=== PATIENT | female | born 2005 | race Two or more races ===

== ENCOUNTER 2025-02-05 04:22 | Emergency (ER) | payer OTHER, SELFPAY ==
--- OUTSIDE RECORDS SUMMARY | 2025-02-05 04:23 | XMS_ITS | Clinical Summary ---
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 Gender Identity Not on file Sexual Orientation Not on file Plan of Treatment Health Maintenance Due Date Last Done Comments CERVICAL CANCER SCREENING 2003 HEPATITIS C SCREENING 2003 TDAP/TD VACCINE (1 - Tdap) 09/14/2014 DEPRESSION SCREENING 2015 HIV SCREENING 09/14/2018 HPV VACCINE (1 - 3-dose series) 09/14/2018 COVID-19 VACCINE (3 - 2024-2 6 season) 2024 10/05/2020, 09/07/2020 INFLUENZA VACCINE (#1) 2024 02/07/2021 ZOSTER SERIES VACCINE (1 of 2) 09/14/2053 Adult RSV VACCINE (1 - 1-dos e 75+ series) 09/14/2078 Pneumococcal Vaccine: Childhood and At-Risk Adult <65 yo Series Aged Out No longer eligible b ased on patient's age to complete this topic Insurance [place] Care Teams Director Clinical Information Services Relationship Specialty Start Date End Date No, Pcp [address] [place] [address] PCP - General 04/03/21
--- OUTSIDE RECORDS SUMMARY | 2025-02-05 04:23 | XMS_ITS | Clinical Summary ---
Author Organization [facility] Address [address] [place] [address] Care Team Providers Care Bacteriologist Pharmaceutical Name Role Phone Unavailable Primary Care Provider Unavailabl e Source Comments In the event that this is information that is protected by federal Confidentiality of Substance UseDisorder Patient Records, 42 CFR Part 2 prohibits the unauthorized disclosure of these records.[facility] Social History Tobacco Use Types Packs/Day Years Used Date Smoking Tobacco: Never Assessed Comments Unknown Sex and Gender Information Value Date Recorded Sex Assigned at Not on file Legal Sex Female 8:02 PM CDT Gender Identity Not on file Sexual Orientation Not on file Plan of Treatment Not on file Insurance [place] * Guarantor: Sarah Cain I Account Type Relation to Patient Date of Phone Billing Address [facility] Self 2005 [address] [facility] [address] [place] [address] [place] Member Subscriber Plan / Payer (Ef fective 2014-Present) Name:Sarah Cain I Relation to Subscriber:Self Name:Sarah Cain I Payer ID:Not on file Group ID:Not on file Type:Medicaid Address: [place] [id number] * Guarantor: CARMINA MONREAL Account Type Relation to Patient Date of Phone Billing Address [facility] Mother [address] [place] [address] [place]
--- OUTSIDE RECORDS SUMMARY | 2025-02-05 04:23 | XMS_ITS | Encounter Summary ---
Author Organization [facility] Address [address] [place] [address] Care Team Providers Care Director Of Recruiting Name Role Phone Unavailable Primary Care Provider Unavailabl e Source Comments In the event that this information is protected by federal Confidentiality ofSubstance Use DisorderPatient Records, 42 CFR Part 2 prohibits theunauthorized disclosure of these records.[facility] Encounter Details Date Type Department Care Team (Late st Contact Info) Description 10/21/2015 Orders Only [place] Pathology [address] [place] [address] Gina Mcneal MD [address] [place] [address] Social History Tobacco Use Types Packs/Day Years Used Date Smoking Tobacco: Never Assessed Comments Unknown Sex and Gender Information Value Date Recorded Sex Assigned at Not on file Legal Sex Female 8:02 PM CDT Gender Identity Not on file Sexual Orientation Not on file documented as of this encounter Plan of Treatment Not on file documented as of this encounter Visit Diagnoses Not on filedocumented in this encounter
--- OUTSIDE RECORDS SUMMARY | 2025-02-05 04:24 | XMS_ITS | Clinical Summary ---
Author Organization [facility] Address [address] [place] [address] Care Team Providers Care Translational Specialist Name Role Phone Brooke Fofana TRUCK DRIVER SALESPERSON-HEALTH SERVICES DIRECTOR Primary Care Provider Allergies No known active allergies Medications potassium phosphate-sodium phosphate (PHOSPHA 250 NEUTRAL) [phone] MG tablet tablet Take 1 tablet by mouth 2 (two) times a day. 120 tablet 1 12/29/2020 Active famotidine (PEPCID) 20 MG tablet Take 1 tablet (20 mg total) by mouth 1 (one) time each day if needed for heartburn. 90 tablet 03/28/2022 Active Active Problems Problem Noted Date Diagnosed Date Bradycardia with 31-40 beats per minute 12/25/19 21 Severe malnutrition 12/24/2020 Anorexia nervosa, binge eating/purging type 12/01 Assessment & Plan (12/26/2020 8:23 PM CDT): Pt medically unstable with severe bradycardia Plan to admit for medical stabilization using inpatient protocol Will remain on protocol until resting HR >50 at which point will be discharged with plans to do FBT with is the recommended first line treatment for an individual her age. Unclear why this treatment wasn't initiated months ago, or why pt did not keep earlier appts with [facility] (as instructed in early october as they have therapists that accept her insurance) as hospitilization may have been avoided. Started conversation on the basic principles of FBT - parents are to decide, , prepare, and observe all meals - pt must complete meals or is to have appropriate consequences. Therapy and meds directed at anxiety/depression are often not helpful wile pt is this malnurished. Priority must be placed on nutritional rehab hospitalist team informed of admission and accepted pt Monitor closely for signs of refeeding syndrome Encounter for immunization 09/07/2020 Exposure to severe acute res piratory syndrome coronavirus 2 (SARS-CoV-2) 07/21/2019 Depressive disorder 07/16/2016 Myopia 11/16/2015 Overweight 10/21/2015 Immunizations Immunization Administration Dates Next Due DTP 09/29/2007, 5,03/20/2004,01/16,2003 DTaP 09/29/2007, 5,03/20/2004,01/16,2003 HIB, Unspecified 06/22/2005, 4,01/17/2004,11/04 HPV 9-Valent (Gardasil) 10/21/2015 HPV, Quadrivalent 09/29/2014 Hepatitis A 11/05/2019 Hepatitis A, Unspecified 03/18/2006,09/21/2005 Hepatitis B, Pediatric 12/22/2004,06/19/2004, IPV (Polio) 09/29/2007, 5,03/20/2004,01/16,2003 MMR 09/29/2007,09/18/2004 Meningococcal Quadrivalent (Menveo-ACWY 2mo-55yo) 09/29/2014 Meningococcal Quadrivalent ACWY 11/05/2019 Pneumococcal Conjugate 7-Valent 03/23/20 05,03/20/2004,01/17/2004,11/04 Pneumococcal, Unspecified 03/23/2005,,01/17/2004,11/04 Tdap 09/29/2013 Varicella (Varivax) 09/29/2007,09/18/2004 Family History Medical History Relation Name Comments No Known Problems Brother No Known Problems Father Diabetes Maternal Grandfather Diabetes Maternal Grandmother No Known Problems Mother No Known Problems Sister Relation Name Status Comments Brother Father Maternal Grandfather Maternal Grandmother Mother Sister Social History Tobacco Use Types Packs/Day Years Used Date Smoking Tobacco: Never Comments:Does not smoke Alcohol Use Standard Drinks/Week Comments Never 0 (1 standard drink = 0.6 oz pur e alcohol) Comments Unknown Sex and Gender Information Value Date Recorded Sex Assigned at Not on file Legal Sex Female 3:26 PM CDT Gender Identity Not on file Sexual Orientation Not on file Last Filed Vital Signs Vital Sign Reading Time Taken Comments Blood Pressure 93/52 03/28/2022 6:13 AM VIOLIN RESTORER Pulse 59 03/28/2022 6:13 AM VIOLIN RESTORER Temperature 36 C (96.8 F) 03/28/2022 2:12 AM VIOLIN RESTORER Respiratory Rate 18 03/28/2022 6:13 AM VIOLIN RESTORER Oxygen Saturation 100% 03/28/2022 6:13 AM VIOLIN RESTORER Inhaled Oxygen Concentration - - Weight 45.4 kg (100 lb) 03/28/2022 2:12 AM VIOLIN RESTORER Height 154.9 cm (5' 1) 03/28/2022 2:12 AM VIOLIN RESTORER Body Mass Index 18.89 03/28/2022 2:12 AM VIOLIN RESTORER Plan of Treatment Health Maintenance Due Date Last Done Comments Hepatitis C Screening 2003 Chlamydia Screening 2019 Meningococcal B Vaccine (1 of 2 - Standard) 2019 DTaP,Tdap,and Td Vaccines (7 - Td or Tdap) 09/30/2023 09/29/2013, 09/29/2007, 09/29/2007, Additional history exists Cervical Cancer Screening 09/14/2024 COVID-19 Vaccine ( season) 2024 03/22/2022, 11/28/2021, 10/05/2020, Additional history exists Influenza Vaccine (#1) 2024 02/07/2021 Zoster Vaccines (1 of 2) 09/14/2053 09/29/2007, 08/31 RSV Vaccine 60+ and Patients (1 - 1-dose 75+ series) 09/14/2078 Hepatitis B Vaccines Completed 12/22/2004, 06/19/2004, 2003 Pneumococcal Vaccine: Pediatrics (0 to 5 Years) and At-Risk Patients (6 to 49 Years) Aged Out 03/23/2005, 03/23/2005, 03/20/2004, Additional history exists No longer eligible based on patient's age to complete this topic HIB Vaccines Completed 06/22/2005, 03/02, 01/17/2004, Additional history exists IPV Vaccines Completed 09/29/2007, 03/02, 03/20/2004, Additional history exists MMR Vaccines Discontinued 09/29/2007, 09/18/2004 Varicella Vaccines Discontinued 09/29/2007, 09/18/2004 HPV Vaccines Completed 10/21/2015, 09/29/2014 Hepatitis A Vaccines Completed 11/05/2019, 03/18/2006, 09/21/2005, Additional history exists Meningococcal ACWY Vaccine Completed 11/05/2019, HIV Screening Completed 03/28/2022 RSV Pediatric <20 Months Aged Out No longer eligible based on patient's age to complete this topic Procedures Procedure Name Priority Date/Time Associated Diagnosis Comments HIV ANTIBODY/ANTIGEN SCREEN WITH REFLEX STAT 03/28/2022 3:46 AM VIOLIN RESTORER from Last 3 Months or Most Recently Relevant to Health Maintenance Results * HIV Antibody/Antigen Screen with Reflex (03/28/2022 3:46 AM VIOLIN RESTORER) Screening, HIV-1 Antibody Non-Reacti ve Non-React siomara 03/28/2022 7:59 AM VIOLIN RESTORER [facility] Screening, HIV-1 Antigen Non-Reacti ve Non-React siomara 03/28/2022 7:59 AM VIOLIN RESTORER [facility] Screening, HIV-2 Antibody Non-Reacti ve Non-React siomara 03/28/2022 7:59 AM VIOLIN RESTORER [facility] Screening, 5th Generation HIV Antigen-Antibod y Non-Reacti ve Non-React siomara 03/28/2022 7:59 AM VIOLIN RESTORER [facility] Blood Venous blood specimen / Unknown Venipuncture / Unknown 03/28/2022 3:46 AM VIOLIN RESTORER 03/28/2022 3:56 AM VIOLIN RESTORER us Lalita Leung MD LAB BLOOD ORDERABLES Final [facility] [address] [address] ([facility]) [place] [address] from Last 3 Months or Most Recently Relevant to Health Maintenance Insurance [employer] MEDICAID-[place] Advance Directives * Full Code (Latest Code Status on File) Date Activated Date Inactivated Comments 12/29/2020 12:06 AM 12/29/2020 2:52 PM Care Teams Translational Specialist Relationship Specialty Start Date End Date Brooke Fofana APRN-CNP [address] [place] [address] PCP - General Internal Medicine 12/26/20
--- OUTSIDE RECORDS SUMMARY | 2025-02-05 04:24 | XMS_ITS | Encounter Summary ---
Author Organization [facility] Address [address] [place] [address] Care Team Providers Care Medical Detail Representative Name Role Phone Unavailable Primary Care Provider Unavailabl e Source Comments In the event that this information is protected by federal Confidentiality ofSubstance Use DisorderPatient Records, 42 CFR Part 2 prohibits theunauthorized disclosure of these records.[facility] Encounter Details Date Type Department Care Team (Late st Contact Info) Description 09/30/2014 Orders Only [place] Pathology [address] [place] [address] Gina Mcneal MD [address] [place] [address] Social History Tobacco Use Types [...]
--- OUTSIDE RECORDS SUMMARY | 2025-02-05 04:24 | XMS_ITS | Patient Health Record ---
Author Organization [facility] Address [address] [place] [address] Support Name Relationship Address Phone MELISSA MONREAL Emergency Contact Unknown JORGE MONREAL Guarantor Unknown Reason For Referral No Information Immunizations Vaccine Route Administration Date Status Comme nts Varicella Unknown 09/18/2004 Administered Varicella Unknown 09/29/2007 Administered Prevnar 13 Unknown 2003 Administered Prevnar 13 Unknown 01/17/2004 Administered Prevnar 13 Unknown 03/20/2004 Administered Prevnar 13 Unknown 03/23/2005 Administered MMR Unknown 09/18/2004 Administered MMR Unknown 09/29/2007 Administered Menveo Unknown 09/29/2014 Administered Menveo Unknown 11/05/2019 Administered IPV Unknown 2003 Administered IPV Unknown 01/17/2004 Administered IPV Unknown 03/20/2004 Administered IPV Unknown 09/29/2007 Administered HPV (human papillomavirus), quadrivalent, 3 dose schedule Unknown 09/29/2014 Administered Hib, unspecified formulation Unknown 2003 Adminis tered Hib, unspecified formulation Unknown 01/17/2004 Adminis tered Hib, unspecified formulation Unknown 03/20/2004 Adminis tered Hib, unspecified formulation Unknown 06/22/2005 Adminis tered Hep B, unspecified formulation Unknown 2003 Admin istered Hep B, unspecified formulation Unknown 06/19/2004 Admin istered Hep B, unspecified formulation Unknown 12/22/2004 Admin istered Hep A, unspecified formulation Unknown 09/21/2005 Admin istered Hep A, unspecified formulation Unknown 03/18/2006 Admin istered Havrix-peds Unknown 11/05/2019 Administered Gardasil 9 Unknown 10/21/2015 Administered DTP Unknown 2003 Administered DTP Unknown 01/17/2004 Administered DTP Unknown 03/20/2004 Administered DTP Unknown 12/22/2004 Administered DTP Unknown 09/29/2007 Administered Comirnaty Covid-19 Pfizer Unknown 09/07/2020 Administer ed Comirnaty Covid-19 Pfizer Unknown 10/05/2020 Administer ed Boostrix Unknown 09/29/2013 Administered Plan Of Treatment No Information Insurance Providers Payer Name Payer Address Payer Phone Subscriber Number Group Number Insured Name Patient Relationship to Insured Coverage Start Date Coverage End Date [place] [address] [address] [place], [place] [id number] CONCEPCIÓN CLEMENTS Self - patient is the insured D [employer] [address] [place] [address] [phone] [id number] CONCEPCIÓN CLEMENTS Self - patient is the insured
--- OUTSIDE RECORDS SUMMARY | 2025-02-05 04:24 | XMS_ITS | Clinical Summary ---
Author Organization [facility] Address [address] [place] [address] Care Team Providers [employer] Service Writer Name Role Phone Puja Mendoza MD Primary Care Provider [phone] Source Comments PLEASE NOTE, if this patient is a minor, it may be UNLAWFUL to discuss sensitive information that is contained in these records (such as FAMILY PLANNING, MENTAL HEALTH or SUBSTANCE ABUSE) with the minor patient's parent or other person without the patient's specific authorization.[facility] Allergies No known active allergies Medications polyethylene glycol, PEG, 3350 (MIRALAX) 17 gram packet 17 g 01/18/2021 Acti ve sod phos di, mono-K phos mono (K PHOS NEUTRAL) 250 mg tablet Take 1 Tablet by mouth twice a day 12/29/2020 Active FLUoxetine (PROZAC) 20 mg capsuleIndicati ons:Depressive disorder Take 1 Capsule by mouth once daily for 90 days 90 Capsule 06/16/2024 Active Active Problems Problem Noted Date Diagnosed Date Tobacco use 04/19/2024 Overview (04/30/2024): Use of up to 1 pack of cigarette at a single time. Smokes about 1 pack weekly. Usually smokes 1-2 times a week when stressed. Uses nicotine vape intermittently. Marijuana also. Motivational counseling measures used to encourage change in all substance use and abstaining. Discussed impact on mental health. Assessment & Plan (04/29/2024 4:15 PM ACCOUNTING CONSULTANT): Counseling was provided Assessment & Plan (04/19/2024 1:58 PM ACCOUNTING CONSULTANT): Intermittent tobacco cannabis use, denies use in the last month, Bulimia (eating disorder) 03/15/2024 Overview (06/23/2024): Hospitalization at [facility] at age 15 for eating disorder necessitating NG tube to improve intake at that time due to cardiac complications. Improved significantly until summer while in college. Decided to return home and taking this semester off to improve mental health. Hx of restrictive and purging behaviors. Symptoms improved now that she is home. Eating 2-3 times daily and less purging (once daily). Recent increase in prozac to 20mg1 month ago. Mood affected by purging behaviors. Assessment & Plan 06/23/24 Improved eating habits, decreased purging behaviors, applying measures to minimize purging and motivated for change. Has especially found recently started therapy sessions very helpful and motivating. Praised for improvement. Has gained 3lbs over the past 1 month. Developed plan with pt to add variety to her current limited food options (see note from 05/26/24 for food selection). Pt agreeable. Continue out pt therapy. Continue prozac 20mg. Recent labs normal- CMP/CBC/TSH. LDL elevated- educated about healthy meals. 05/26/24 Recent decrease in weight by 4lbs despite measures to improve eating habits in the home. Eating 3 times daily, monitored by mother. She however mostly eats one type of sandwich through out the day. She is able to eat different types of food purchased from outside the home. Explored with pt ways to improve nutrients in meal- agreeable to add milk to regimen and also discussed rice. Purging once daily- praised fro improvement from prior and further motivated. Plan to start nutritional counseling in July. Plan to start outpt therapy next week. Processed eating habits and coping skills/body image. --Recommend eating disorder clinic but insurance limitations. -Will monitor weight -Counseled about eating and ways to limit purging behaviors. Pt highlights distracting self by walking after meal as a possible beneficial measure to avoid purging. Motivated for improvement and finds mother supportive. -Monitor labs- ADVISED TO OBTAIN LABS DISCUSSED IN PRIOR APPT Assessment & Plan (06/17/2024 8:52 AM CDT): Follow up today, weight up 3 lb from last visit, no bradycardia, purging episodes stable/ decreasing, established with weekly online, follows with [facility] and has appointment in july to start nutrition counseling, follow up in four weeks in person or telehealth Assessment & Plan (04/29/2024 4:14 PM ACCOUNTING CONSULTANT): Decreased purging episodes in the last weeks Compliant with 20 mg fluoxetine Seeing psychiatry tomorrow Continuing to try to establish BH Assessment & Plan (04/19/2024 2:02 PM ACCOUNTING CONSULTANT): Continuing to have symptoms of purging, CMP with no electrolyte abnormalities, heart rate normal, denies SI Increasing Prozac today, referral sent to psychiatry, follow-up in 2 weeks Assessment & Plan (03/15/2024 3:39 PM ACCOUNTING CONSULTANT): Endorsing recent symptoms with recent episodes Denies current SI or intent to harm self Not interested in inpatient therapies at this time Return to clinic in 1 to 2 weeks Anxiety 03/13/2024 Overview (06/23/2024): 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 Stress of bullying at that time could have contributed to symptoms. Began therapy at age 11 for support. Anxiety characterized by excessive worries. Assessment & Plan 06/23/24 Anxiety improved. Improved motivation, creativity (engaging better in painting) and eating habits. Praised for improvement. Has especially found therapy helpful. Agreeable to continue therapy and prozac 20m Severe malnutrition 12/24/2020 Encounter for immunization 09/07/2020 Depressive disorder 07/16/2016 Overview (06/23/2024): Pt with established dx of depression since age 11. Mood mostly affected by purging behaviors at this time. Prozac recently increased to 20mg in Apr 2024. Assessment & Plan 06/23/24 Presents with euthymic affect, smiled easily. Mood and anxiety improved. Improved motivation, creativity (engaging better in painting) and eating habits. Praised for improvement. Has especially found therapy helpful. Agreeable to continue therapy and prozac 20mg. 05/26/24 Mood improved with increase in prozac last month. Improved sleep, energy and less purging behaviors despite slight decrease in weight by 4lbs. Explored ways to further decrease purging behaviors. Discussed ways to add more nutrient and food options to current diet. Strongly recommend therapy for eating disorder, mood, anxiety and stressors. Also therapy to improve self image. No SI/HI. Assessment & Plan (04/19/2024 1:59 PM ACCOUNTING CONSULTANT): No side effects with initiation dose 10 mg, uptitrate to 20 mg today Referral sent to psychiatry Assessment & Plan (03/15/2024 3:34 PM ACCOUNTING CONSULTANT): Acute on chronic, moving back home from school in [place] Previously engaged in talk therapy with benefit Interested in reengaging with previous practice Open to medication initiation today Myopia 11/16/2015 Resolved Problems Problem Noted Date Diagnosed Date Resolved Date Anorexia nervosa 03/13/2024 06/23/2024 Assessment & Plan (05/13/2024 7:00 PM ACCOUNTING CONSULTANT): Improving mood, looking forward to getting a job and working Weight down 4 lb from last in person visit No bradicardia and reduced eppisodes of purging Nutrition referral printed and handed to patient Continue prozac Rtc in one month for weight check Resources for eating disorder clinics attached to [facility] Assessment & Plan (04/29/2024 4:14 PM ACCOUNTING CONSULTANT): Continue decrease caloric intake Low concern for refeeding syndrome Interested in working with nutrition Assessment & Plan (03/15/2024 3:42 PM ACCOUNTING CONSULTANT): Endorsing recent symptoms with recent episodes Denies current SI or intent to harm self Not interested in inpatient therapies at this time Return to clinic in 1 to 2 weeks Bradycardia with 31-40 beats per minute 12/24/2020 04/19/2024 Exposure to severe acute res piratory syndrome coronavirus 2 (SARS-CoV-2) 07/21/2019 06/17/2024 Immunizations Immunization Administration Dates Next Due DTAP (Infanrix) 09/29/2007, 5,03/20/2004,01/16,2003 Flu, Preservative Free 02/07/2021 HEP A, UNSPECIFIED 03/18/2006,09/21/2005 HEP B, PED/ADOL (ZDIBNHA-L-YVXL/RECOMBIVAX-PEDS) 12/22/2004,06/19/2004,2003 HPV 9 (Gardasil) 10/21/2015 HPV, QUADRIVALENT 09/29/2014 Hep A, Ped/adol, 2 Dose 11/05/2019,09/18/2004 Hib, unspecified 06/22/2005, 4,01/17/2004,11/04 IPV (IPOL) 09/29/2007, 5,03/20/2004,01/16,2003 MENINGOCOCCAL MCV4O (MENVEO) 09/29/2014 MENINGOCOCCAL MCV4P (MENACTRA) 11/05/2019 MMR (MMR II/Priorix) 09/29/2007,09/18/2004 PFIZER COVID VACCINE, PURPLE CAP, 12+ 10/05/2020 ,09/07/2020 PNEUMOCOCCAL CONJUGATE PCV 7 03/23/2005, 03/20/2004,01/17/2004,11/04 Pfizer COVID vaccine, COMIRN ATY, jain cap, 12+ 11/28/2021 TDAP 11/25/2022,09/29/2013 Varicella (Varivax), Live Vaccine 09/29/2007, Social History Tobacco Use Types Packs/Day Years Used Date Smoking Tobacco: Some Days Cigarettes Smokeless Tobacco: Never Tobacco Cessation:Ready to Q uit: Not Asked; Counseling Given: Not Answered Comments:1 cigg a day per pt Alcohol Use Standard Drinks/Week Comments Yes 0 (1 standard drink = 0.6 oz pur e alcohol) Social Connections Answer Date Recorded How often do you see or talk to people that you care about and feel close to? (For example: talking to friends on phone, visiting friends or family, going to catholic or club meetings) 1 04/30/2024 Financial Resource Strain Answer Date R ecorded Financial Resource Strain 0 2022 Stress Answer Date Recorded Do you feel these kinds of stress these days? 2 04/30/2024 Physical Activity Answer Date Recorded Physical Activity 0 04/17/2022 Food Insecurity Answer Date Recorded Food 0 12/26/2023 Transportation Needs Answer Date Record ed Transportation 0 04/17/2022 Housing Stability Answer Date Recorded Housing 0 04/17/2022 Safety and Environment Answer Date Obed rded How often does anyone, inclu ding family and friends, physically hurt you? 1 04/30/2024 Utilities Answer Date Recorded Utilities 0 04/17/2022 Employment Answer Date Recorded Are you currently employed? 1 04/03 Comments No Sex and Gender Information Value Date Recorded Sex Assigned at Female 02/24/2024 7:07 AM PST Legal Sex Female 1:41 PM PST Gender Identity Female 05/30/2021 8:23 PM PST Sexual Orientation Choose not to disclose 2021 8:23 PM PST Last Filed Vital Signs Vital Sign Reading Time Taken Comments Blood Pressure 106/71 06/16/2024 4:17 PM CDT Pulse 66 06/16/2024 4:17 PM CDT Temperature 37.1 C (98.7 F) 03/13/2024 3:10 PM ACCOUNTING CONSULTANT Respiratory Rate - - Oxygen Saturation 100% 06/16/2024 4:17 PM CDT Inhaled Oxygen Concentration - - Weight 47.3 kg (104 lb 3 oz) 06/16/2024 4:17 PM CDT Height 157.5 cm (5' 2) 03/13/2024 3:10 PM ACCOUNTING CONSULTANT Body Mass Index 19.06 03/13/2024 3:10 PM ACCOUNTING CONSULTANT Plan of Treatment Health Maintenance Due Date Last Done Comments Anxiety Screening 2003 Depression Monitoring 2003 HPV Screening (self-collect) 2003 HPV Screening 2003 Hepatitis C Screening 2003 Pap + HPV 2003 Imm-Pneumococcal (1 of 2 - PCV) 09/14/2022 03/23/2005, 03/20/2004, 01/17/2004, Additional history exists Cervical Cancer Screening 09/14/2024 Pap Smear 09/14/2024 [id number] ( season) 2024 03/22/2022, 11/28/2021, 10/05/2020, Additional history exists Imm-Influenza (#1) 2024 02/07/2021 Chlamydia Screening 03/13/2025 03/13/2024 Gonorrhea Screening 03/13/2025 03/13/2024 Relationship Safety Screening/Counseling 04/30/2025 04/30/2024 Tobacco Cessation Counseling (#1) 05/26/2025 05/26/2024, 05/13/2024, 04/29/2024, Additional history exists Hypertension Screening (#1) 06/16/2027 Imm-DTaP/Tdap/Td (8 - Td or Tdap) 11/25/2032 11/25/2022, 09/29/2013, 09/29/2007, Additional history exists Imm-Hepatitis B Completed 12/22/2004, 05/31, 2003 Imm-Varicella Completed 09/29/2007, 09/18/2004 Imm-HPV Completed 10/21/2015, 09/29/2014 Imm-Hepatitis A Completed 11/05/2019, 03/01, 09/21/2005, Additional history exists HIV Screening Completed 03/28/2022 Alcohol and Drug Screen Completed 04/30/2024 Cervical Ablation/Cold-Knife Conization Discontinued Cervical Cryotherapy Discontinued Colposcopy Discontinued Excision/Leep Discontinued HPV Genotyping Discontinued Vaginal Pap Discontinued Vulvoscopy Discontinued Procedures Procedure Name Priority Date/Time Associated Diagnosis Comments CHLAMYDIA, GONORRHOEAE, AND TRICHOMONAS VAGINALIS, NICHOLAS Routine 03/13/2024 4:55 PM ACCOUNTING CONSULTANT Screening for STD (sexually transmitted disease) from Last 3 Months or Most Recently Relevant to Health Maintenance Results * CHLAMYDIA,??GONORRHOEAE, AND??TRICHOMONAS VAGINALIS, NICHOLAS (03/13/2024 4:55 PM ACCOUNTING CONSULTANT) CHLAMYDIA BY NICHOLAS [facility] [place] TR[facility]AG BY NICHOLAS Negative Negative [facility] Urine Urine specimen / Unknown 03/13/2024 4:55 PM ACCOUNTING CONSULTANT 03/14/2024 Puja Mendoza MD LAB BODY FLUIDS AND STOOLS A MBULATORY Final Result [facility] [place] [address] [phone] from Last 3 Months or Most Recently Relevant to Health Maintenance Insurance [employer] Care Teams Automotive Service Writer Relationship Specialty Start Date End Date Puja Mendoza MD [address] [place] [address] PCP - General Family Medicine, Physician 02/28/24
--- OUTSIDE RECORDS SUMMARY | 2025-02-05 04:24 | XMS_ITS | Clinical Summary ---
Author Organization [facility] Address [address] [place] [address] Care Team Providers Care Nuclear Technologist Name Role Phone Unknown, Pcp Primary Care Provider Unavailabl e Allergies No Known Allergies Current Medications No known medications Encounters Date Type Specialty Care Team Description 11/27/2024 Emergency Emergency Medicine Emily Pagan MD Encounter for staple removal (Primary Dx) 11/15/2024 Emergency Emergency Medicine Dionne Lui DO Sompalli, Vinootna, MD Syncope and collapse (Primary Dx); Abdominal pain, generalized from Last 3 Months Immunizations Name Dates Previously Given Next Due tdap 11/15/2024,11/25/2022 Social History Tobacco Use Types Packs/Day Years Used Date Former Smoker Cigarettes 1 Smokeless Tobacco: Never Used Alcohol Use Drinks/Week oz/Week Comments No Sex Assigned at Date Recorded Not on file Last Filed Vital Signs Vital Sign Reading Time Taken Blood Pressure 94/54 11/27/2024 10:00 AM CDT Pulse 57 11/27/2024 10:00 AM CDT Temperature 36.9 C (98.5 F) 11/27/2024 10:00 AM CDT Respiratory Rate 18 11/27/2024 10:0 0 AM CDT Oxygen Saturation 99% 11/27/2024 10: 00 AM CDT Inhaled Oxygen Concentration - - Weight 45.4 kg (100 lb) 11/15/2024 11:4 6 AM CDT Height - - Body Mass Index - - Plan of Treatment Not on file Procedures Procedure Name Priority Date/Time Associated Diagnosis Comments SUTURE REMOVAL Routine 11/27/2024 10:07 AM CDT LACERATION REPAIR Routine 11/15/2024 2:[address] CERVICAL SPINE WO CONTRAST STAT 11/15/2024 2:[address] ABDOMEN & PELVIS W IV CONTRAST STAT 11/15/2024 2:[address] HEAD WO CONTRAST STAT 11/15/2024 2 :23 PM CDT TOXICOLOGY SCREEN, URINE STAT 11/15/2024 1:55 PM CDT UA AUTO W/REFLEX TO MICROSCOPIC STAT 11/15/2024 1:55 PM CDT POCT URINE STAT 11/15/2024 1:53 PM CDT POCT GLUCOSE STAT 11/15/2024 12:30 PM CDT XR CHEST AP PORTABLE STAT 11/15/2024 12:29 PM CDT PGLU1 Routine 11/15/2024 12:20 PM CDT CK TOTAL STAT 11/15/2024 12:15 PM CDT TROPONIN HIGH SENSITIVITY Timed 11/15/2024 12:15 PM CDT MAGNESIUM-SERUM STAT 11/15/2024 12:15 PM CDT LIPASE - SERUM STAT 11/15/2024 12:15 PM CDT COMPREHENSIVE METABOLIC PANEL STAT 11/15/2024 12:15 PM CDT CBC AND DIFFERENTIAL STAT 11/15/2024 12:15 PM CDT from Last 3 Months Results * SUTURE REMOVAL (11/27/2024 10:07 AM) Narrative Performed At [facility] 11/27/2024 10:13 AM Suture Removal Date/Time: 11/27/2024 10:10 AM Performed by: SULTANA MUNOZ Authorized by: EMILY PAGAN Consent: Consent obtained: Verbal Consent given by: Patient Risks discussed: Bleeding, pain and wound separation Location: Location: Head/neck Head/neck location: Scalp Procedure details: Wound appearance: No signs of infection, good wound healing, clean, nonpurulent and nontender Number of starr removed: 5 Post-procedure details: Post-removal: No dressing applied Patient tolerance of procedure: Tolerated well, no immediate complications * LACERATION REPAIR (11/15/2024 2:53 PM) Narrative Performed At Jeff Phillips MD 11/15/2024 2:56 PM Lac Repair Date/Time: 11/15/2024 2:53 PM Performed by: JEFF PHILLIPS Authorized by: MADAY SINGER Consent: Consent obtained: Verbal Risks discussed: Infection, pain and retained foreign body Alternatives discussed: No treatment Laceration details: Location: Scalp Scalp location: R parietal Length (cm): 3 Exploration: Contaminated: yes Treatment: Area cleansed with: Saline Amount of cleaning: Extensive Irrigation solution: Sterile saline Skin repair: Repair method: [place] Number of starr: 5 Post-procedure details: Dressing: Open (no dressing) Patient tolerance of procedure: Tolerated well, no immediate complications * CT ABDOMEN & PELVIS W IV CONTRAST (11/15/2024 2:23 PM) Impressions Performed At No acute intra-abdominal or pelvic process. SIGNED BY: Denver Miguel 11/15/2024 5:20 PM PACS Narrative Performed At CT ABDOMEN & PELVIS W IV CONTRAST CLINICAL INDICATION: 21 [id number]; abdominal pain, syncope COMPARISON: None available. TECHNIQUE: [address] sections were obtained through the abdomen and pelvis, after the administration of 90 mL of Omnipaque 350 IV contrast material. Oral contrast was not ordered/administered. After which sagittal and coronal reconstructions were obtained. CT dose reduction techniques utilized. FINDINGS: PARTIALLY VISUALIZED LUNG BASES: Unremarkable. ABDOMEN and PELVIS: LIVER AND BILIARY SYSTEM: The liver is unremarkable. No radiodense gallstones. No intra or extrahepatic biliary ductal dilatation. PANCREAS: Unremarkable. SPLEEN: Unremarkable. ADRENAL GLANDS: Unremarkable. GENITOURINARY ORGANS: The kidneys are unremarkable . There is no hydronephrosis or perinephric fluid collections. The urinary bladder is unremarkable. VASCULATURE: The abdominal aorta is nonaneurysmal. LYMPH NODES: No pathologically enlarged lymphadenopathy by CT size criteria. BOWEL AND MESENTERY: No evidence of bowel obstruction. The appendix is visualized and unremarkable . ABDOMINAL WALL AND BONES: No acute osseous injury. There is no free intraperitoneal air or fluid within the abdomen or pelvis. PACS Procedure Note Perez, Rad Results In - 11/15/2024 5:[address] ABDOMEN & PELVIS W IV CONTRAST CLINICAL INDICATION: 21 [id number]; abdominal pain, syncope COMPARISON: None available. TECHNIQUE: [address] sections were obtained through the abdomenand pelvis, after the administration of 90 mL of Omnipaque 350 IV contrast material. Oralcontrast was not ordered/administered. After which sagittal and coronal reconstructionswere obtained. CT dose reduction techniques utilized. FINDINGS: PARTIALLY VISUALIZED LUNG BASES: Unremarkable. ABDOMEN and PELVIS: LIVER AND BILIARY SYSTEM: The liver is unremarkable. No radiodensegallstones. No intra or extrahepatic biliary ductal dilatation. PANCREAS: Unremarkable. SPLEEN: Unremarkable. ADRENAL GLANDS: Unremarkable. GENITOURINARY ORGANS: The kidneys are unremarkable . There is nohydronephrosis or perinephric fluid collections. The urinary bladder is unremarkable. VASCULATURE: The abdominal aorta is nonaneurysmal. LYMPH NODES: No pathologically enlarged lymphadenopathy by CT sizecriteria. BOWEL AND MESENTERY: No evidence of bowel obstruction. The appendix isvisualized and unremarkable . ABDOMINAL WALL AND BONES: No acute osseous injury. There is no free intraperitoneal air or fluid within the abdomen orpelvis. IMPRESSION: No acute intra-abdominal or pelvic process. SIGNED BY: Denver Miguel 11/15/2024 5:20 PM Performing Organization Address City/State/Zipcod e Phone Number PACS * CT CERVICAL SPINE WO CONTRAST (11/15/2024 2:23 PM) Impressions Performed At Reversal of normal cervical lordosis may be due to positioning or muscle spasm. SIGNED BY: Denver Miguel 11/15/2024 5:21 PM PACS Narrative Performed At CT CERVICAL SPINE WO CONTRAST CLINICAL INDICATION: 21 [id number]; neck pain s/p fall COMPARISON: None. TECHNIQUE: 2.[address] sections were obtained through the cervical spine. 3D reformatted images were obtained of the cervical spine on an independent workstation and submitted to PACS for additional interpretation, under radiologist supervision. No intravenous contrast was administered. Afterwards, sagittal and coronal reconstructions were obtained post processing. CT dose reduction techniques utilized. FINDINGS: The cervical vertebral body height and alignment are normal. Reversal of the normal cervical lordosis. The intervertebral disc spaces are within normal limits. The paravertebral and paraspinal soft tissues are within normal limits. At the C2-C3 level, there is no acute fracture or dislocation. At the C3-C4 level, there is no acute fracture or dislocation. At the C4-C5 level, there is no acute fracture or dislocation. At the C5-C6 level, there is no acute fracture or dislocation. At the C6-C7 level, there is no acute fracture or dislocation. At the C7-T1 level, there is no acute fracture or dislocation. The cervical spinal canal appears to be patent. The incidentally imaged lung apices are unremarkable. PACS Procedure Note Perez, Rad Results In - 11/15/2024 5:[address] CERVICAL SPINE WO CONTRAST CLINICAL INDICATION: 21 [id number]; neck pain s/p fall COMPARISON: None. TECHNIQUE: 2.[address] sections were obtained through thecervical spine. 3D reformatted images were obtained of the cervical spine on an independent workstationand submitted to PACS for additional interpretation, under radiologist supervision. Nointravenous contrast was administered. Afterwards, sagittal and coronal reconstructions were obtained postprocessing. CT dose reduction techniques utilized. FINDINGS: The cervical vertebral body height and alignment are normal. Reversal ofthe normal cervical lordosis. The intervertebral disc spaces are within normal limits. Theparavertebral and paraspinal soft tissues are within normal limits. At the C2-C3 level, there is no acute fracture or dislocation. At the C3-C4 level, there is no acute fracture or dislocation. At the C4-C5 level, there is no acute fracture or dislocation. At the C5-C6 level, there is no acute fracture or dislocation. At the C6-C7 level, there is no acute fracture or dislocation. At the C7-T1 level, there is no acute fracture or dislocation. The cervical spinal canal appears to be patent. The incidentally imaged lung apices are unremarkable. IMPRESSION: Reversal of normal cervical lordosis may be due to positioning or musclespasm. SIGNED BY: Denver Miguel 11/15/2024 5:21 PM Performing Organization Address City/State/Zipcod e Phone Number PACS * CT HEAD WO CONTRAST (11/15/2024 2:23 PM) Impressions Performed At 1. No evidence of acute intracranial hemorrhage, hyperdense extraaxial fluid collection, or midline shift as above. Note: Acute ischemia may be occult on CT for up to 48 hours and if there is a persistent concern for acute ischemia recommend MRI with diffusion-weighted imaging. SIGNED BY: Denver Miguel 11/15/2024 5:22 PM PACS Narrative Performed At CT HEAD WO CONTRAST CLINICAL INDICATION: 21 [id number]; syncope, head injury COMPARISON: 11/25/2022 TECHNIQUE: CT of the brain was performed using axial slices from the base of the skull to the vertex without contrast including bone window settings after initial activities director scouting films. CT dose reduction techniques utilized. FINDINGS: There is no evidence of acute intracranial hemorrhage, vascular territory acute infarction, or hyperdense extraaxial fluid on this noncontrast CT examination. No mass effect or midline shift is seen of the midline structures. There is no hydrocephalus. The ventricular system appears to be symmetric and normal in size. The visualized paranasal sinuses and mastoid air cells are clear. There is no depressed calvarial fracture. PACS Procedure Note Perez, Rad Results In - 11/15/2024 5:[address] HEAD WO CONTRAST CLINICAL INDICATION: 21 [id number]; syncope, head injury COMPARISON: 11/25/2022 TECHNIQUE: CT of the brain was performed using axial slices from the baseof the skull to the vertex without contrast including bone window settings after initial activities director scouting films.CT dose reduction techniques utilized. FINDINGS: There is no evidence of acute intracranial hemorrhage, vascular territoryacute infarction, or hyperdense extraaxial fluid on this noncontrast CT examination. No mass effect ormidline shift is seen of the midline structures. There is no hydrocephalus. The ventricular systemappears to be symmetric and normal in size. The visualized paranasal sinuses and mastoid air cells are clear. There is no depressed calvarial fracture. IMPRESSION: 1. No evidence of acute intracranial hemorrhage, hyperdense extraaxialfluid collection, or midline shift as above. Note: Acute ischemia may be occult on CT for up to 48 hours and if thereis a persistent concern for acute ischemia recommend MRI with diffusion-weighted imaging. SIGNED BY: Denver Miguel 11/15/2024 5:22 PM Performing Organization Address [facility] e Phone Number PACS * TOXICOLOGY SCREEN, URINE (11/15/2024 1:55 PM) Amphetamine Screen, Urine NEGATIVE NEGATIVE *L AB-([facility]) [facility] BARBITALS, URINE NEGATIVE NEGATIVE *LAB-([place] Benzodiazepine Screen, Urine NEGATIVE NEGATIVE *LAB-([facility]) [facility] Cannabinoid Scrn, Ur POSITIVE(A) NEGATIVE *[facility]-([place]) [facility] Cocaine(Metab.)Screen, Urine NEGATIVE NEGATIVE *LAB-([facility]) [facility] Opiate Screen, Urine NEGATIVE NEGATIVE *[facility]-([place]) [facility] PCP Scrn, Ur NEGATIVE Comment: Concentrations below the following threshold are reported as Negative: 500 ng/mL for Amphetamines, 200 ng/mL for Barbiturates, 300 ng/mL for Benzodiazepine, 50 ng/mL for Cannabinoids, 150 ng/mL for Cocaine Metabolites, 300 ng/mL for Opiates, and 25 ng/mL for Phencyclidines (PCP) NEGATIVE *LAB-([facility]) [facility] Specimen Urine - Urine, Clean Catch Performing Organization Address [facility] e Phone Number *LAB-([facility]) [facility] * UA Auto w/Reflex to Microscopic (11/15/2024 1:55 PM) Color, UA STRAW YEL,STRW *LAB-([facility]) [facility] Appearance, UA CLEAR CLEAR *[facility]-([place] Glucose, UA NEGATIVE NEGATIVE mg/dL *[facility]-([place] [facility] Bilirubin, UA NEGATIVE NEGATIVE *LAB-([facility] ) [facility] Ketones, UA NEGATIVE NEGATIVE mg/dL *[facility]-([place] [facility] Specific [place], UA 1.011 1.001 - 1.035 *LAB-( [facility]) [facility] Blood, UA NEGATIVE NEGATIVE *LAB-([facility]) [facility] pH, Urine 6 5.0 - 8.0 *LAB-([facility]) [facility] Protein, UA NEGATIVE NEGATIVE mg/dL *[facility]-([place] Urobilinogen, UA NORMAL(A) NEGATIVE mg/dL *[facility]-([place] Nitrite, UA NEGATIVE NEGATIVE *[facility]-([place]) [facility] Leukocytes, UA NEGATIVE NEGATIVE *[facility]-([place] Specimen Urine, Clean Catch Performing Organization Address [facility] e Phone Number *[facility]-([place]) [facility] * POCT Urine (11/15/2024 1:53 PM) Preg Test, Ur Negative Control Line, POCT UR PRESENT LOT NUMBER, POCT UR [phone] Specimen Urine * POCT GLUCOSE (11/15/2024 12:30 PM) POC Glucose 104 mg/dl * XR CHEST AP PORTABLE (11/15/2024 12:29 PM) Impressions Performed At 1. No acute cardiopulmonary process is identified. SIGNED BY: Denver Miguel 11/15/2024 1:16 PM PACS Narrative Performed At XR CHEST AP PORTABLE CLINICAL INDICATION: 21 [id number]; syncope COMPARISON: None TECHNIQUE: Portable AP chest radiograph was obtained. FINDINGS: The heart is normal in size. The trachea is midline. The pulmonary vasculature is within normal limits. No focal airspace consolidation, pneumothorax, or pleural effusion identified. The partially visualized osseous structures appear to be intact. PACS Procedure Note Perez, Rad Results In - 11/15/2024 1:17 PM CDT XR CHEST AP PORTABLE CLINICAL INDICATION: 21 [id number]; syncope COMPARISON: None TECHNIQUE: Portable AP chest radiograph was obtained. FINDINGS: The heart is normal in size. The trachea is midline. The pulmonary vasculature is within normal limits. No focal airspace consolidation, pneumothorax, or pleural effusionidentified. The partially visualized osseous structures appear to be intact. IMPRESSION: 1. No acute cardiopulmonary process is identified. SIGNED BY: Denver Miguel 11/15/2024 1:16 PM Performing Organization Address [facility] e Phone Number PACS * Point of Care Glucose (11/15/2024 12:20 PM) POC Glucose 104(H) 70 - 99 mg/dL *LAB-([place] ) [facility] Performing Organization Address [facility] e Phone Number *LAB-([place]) [facility] * Troponin High Sensitivity (11/15/2024 12:15 PM) Troponin High Sensitivity <2 0 - 12 ng/L *L AB-([place]) [facility] Specimen Blood - Blood Performing Organization Address [facility] e Phone Number *[facility]-([place] * CK Total (11/15/2024 12:15 PM) Total CK 94 30 - 223 IU/L *LAB-([place] [facility] Specimen Blood - Blood Performing Organization Address [facility] e Phone Number *[facility]-([place] * CBC AND DIFFERENTIAL (11/15/2024 12:15 PM) WBC 6.6 4.0 - 11.0 k/mm cu *[facility]-([place] Platelets 225 150 - 450 k/mm cu *LAB-([place] RBC 4.11 3.63 - 5.04 m/mm cu *[facility]-([place] Hemoglobin 12.4 12.0 - 15.3 g/dL *[facility]-([place] Hematocrit 35.9 34.7 - 45.1 % *LAB-([place] ) [facility] MCV 87.4 80.0 - 100.0 fL *LAB-([facility] MCH 30.2 26.0 - 34.0 pg *[facility]-([place] MCHC 34.5 32.5 - 35.8 % *LAB-([place] ) [facility] RDW 13.7 11.9 - 15.9 % *LAB-([place] ) [facility] MPV 8.1 6.8 - 10.2 fL *LAB-([place] ) [facility] Neutrophils % 64.7 % *LAB-([place] ) [facility] Lymphocytes % 27.5 % *[facility]-([place] ) [facility] Monocytes % 6.4 % *[facility]-([place]) [facility] Eosinophils % 0.7 % *[facility]-([place] ) [facility] Basophils % 0.7 % *LAB-([place]) [facility] Neutrophils Absolute 4.3 1.7 - 7.7 k/mm cu *L AB-([place]) [facility] Lymphocytes Absolute 1.8 0.6 - 3.4 k/mm cu *L AB-([place]) [facility] Monocytes Absolute 0.4 0.3 - 1.0 k/mm cu *LAB -([place]) [facility] Eosinophils Absolute 0.0 0 - 0.5 k/mm cu *LAB -([place]) [facility] Basophils Absolute 0.0 0 - 0.2 k/mm cu *[facility]-( [place] Specimen Blood - Blood Performing Organization Address [facility] e Phone Number *[facility] * Magnesium, Serum (11/15/2024 12:15 PM) Magnesium 1.8 1.6 - 2.6 mg/dL *[facility]-([facility] Specimen Blood - Blood Performing Organization Address [facility] e Phone [facility] *[facility] * Lipase, Serum (11/15/2024 12:15 PM) Lipase 31 11 - 82 U/L *[facility]-([place] Specimen Blood - Blood Performing Organization Address [facility] e Phone Number *[facility]-([place] * Comprehensive Metabolic Panel (11/15/2024 12:15 PM) Glucose 105(H) 70 - 99 mg/dL *LAB-([place] ) [facility] BUN 13 7 - 25 mg/dL *[facility]-([place] Creatinine 0.82 0.6 - 1.30 mg/dL *[facility]-([place] Sodium 132(L) 133 - 144 mmol/L *[facility]-([place] Potassium 3.1(L) 3.5 - 5.1 mmol/L *[facility]-([place] Chloride 96(L) 98 - 109 mmol/L *LAB-([facility] CO2 28 21 - 31 mEq/L *[facility]-([place] [facility] Anion Gap 8 3.6 - 11.0 mmol/L *[facility]-([place]) [facility] BUN/Creatinine Ratio 16.0 6.0 - 20.0 *[facility]-([place] Calcium 8.7 8.6 - 10.3 mg/dL *[facility]-([place] Total Protein 6.6 6.4 - 8.9 g/dL *[facility]-([facility] Albumin 4.3 3.5 - 5.7 mg/dL *[facility]-([facility] AST 22 13 - 39 IU/L *[facility]-([place] ALT 13 7 - 52 IU/L *[facility]-([place] Alkaline Phosphatase 63 35 - 104 IU/L *[facility]-( [place]) [facility] Total Bilirubin 0.3 0.0 - 1.0 mg/dL *[facility]-([place] GFR MDRD Non Af Amer >60 >60 mL/min/1.73m *[place] [facility]-([place]) [facility] GFR MDRD Af Amer >60 Comment: ABNORMALITIES IN CREATININE PRODUCTION, SEEN WITH EXTREMES IN BODY SIZE OR MUSCLE MASS, IN THOSE WITH SKELETOMUSCULAR DISEASES, OR UNUSUAL DIETARY INTAKE (CREATINE SUPPLEMENTS, VEGETARIAN DIETS) MAY CONTRIBUTE TO THE INACCURACY OF THE eGFR. IN THESE CASES, ASSESSMENT BY CREATININE CLEARANCE IS RECOMMENDED. DO NOT USE FOR DRUG DOSING. >60 mL/min/1.73m *[facility]-([place]) [facility] Specimen Blood - Blood Performing Organization Address City/State/Zipcod e Phone Number *LAB-([place]) [facility] from Last 3 Months
--- OUTSIDE RECORDS SUMMARY | 2025-02-05 04:24 | XMS_ITS | Clinical Summary ---
Author Organization [facility] Address [address] [place] [address] Care Team Providers Care Tag Clerk Name Role Phone Puja Mendoza MD Primary Care Provider Social History Tobacco Use Types Packs/Day Years Used Date Smoking Tobacco: Never Assessed Comments Unknown Sex and Gender Information Value Date Recorded Sex Assigned at Not on file Legal Sex Female 12:38 PM [employer] Gender Identity Not on file Sexual Orientation Not on file Plan of Treatment Health Maintenance Due Date Last Done Comments Depression Screening 2015 Physical 09/14/2021 PAP SMEAR 09/14/2024 COVID-19 Vaccine ( season) 2024 03/22/2022, 11/28/2021, 10/05/2020, Additional history exists FLU VACCINE (#1) 11/30/2024 02/07/2021 DTaP/Tdap/Td Vaccines (8 - Td or Tdap) 11/25/2032 11/25/2022, 09/29/2013, 09/29/2007, Additional history exists Pneumococcal: Pediatric/ High Risk Adult 18-64 Aged Out 03/23/2005, 03/23/2005, 03/20/2004, Additional history exists No longer eligible based on patient's age to complete this topic HPV VACCINE Completed 10/21/2015, 09/29/2014 Insurance [employer] ALL OTHER Care Teams Tag Clerk Relationship Specialty Start Date End Date Puja Mendoza MD [address] [place] [address] [email or web address] PCP - General Family Medicine 05/18/24
--- NOTE | 2025-02-05 04:29 | ED_ITS ---
HPI - Abdominal Pain General Time Seen by Provider: 04:29 Date Seen: 02/05/25 Chief Complaint: Abdominal Pain Stated Complaint: stomach pain Time Seen by Provider: 02/05/25 04:29 Source: patient Mode of arrival: ambulatory Limitations: no limitations History of Present Illness HPI narrative: 19-year-old female who presents today with abdominal pain. Patient notes a couple hours of generalized abdominal pain, no diarrhea, did vomit. Also has had several days of pain with urination. Denies fevers or chills, no cough or runny nose. No vaginal bleeding. Related Data Previous Rx's ?Medication ?Instructions ?Recorded cefdinir 300 mg capsule 300 mg PO BID 7 days #14 cap s 02/05/25 Allergies Allergy/AdvReac Type Severity Reaction Status Date / Time No Known Drug Allergies Allergy Verified 04/19/23 16:37 PFSH PFSH Social History Non-prescribed substance use: denies use Exam Narrative: Exam Narrative: General: Well-developed and well-nourished, no acute distress Head: Atraumatic and normocephalic Eyes: Pupils are equal reactive, extraocular motions intact, conjunctiva clear ENT: External nose and ears are normal, posterior pharynx without erythema or exudate Neck: No midline cervical tenderness, full spontaneous range of motion the neck, trachea midline, no adenopathy Heart: Regular rate and rhythm no murmurs or thrills Lungs: Clear to auscultation bilaterally without wheezes or crackles Abdomen: Soft, generalized tenderness,, nondistended with active bowel sounds Musculoskeletal: No tenderness, deformity, or edema Neurologic: Awake, alert, and oriented x3, no gross focal neurologic deficits, cranial nerves intact as tested Psych: Mood and affect are appropriate Skin: No rashes Const: Vital Signs, click to edit/add: Vital Signs - 24 hr 02/05/25 04:32 Temperature 98 F Pulse Rate [Pulse Oximeter] 88 Respiratory Rate 16 Blood Pressure [Ri ght Upper Arm] 109/70 Pulse Oximetry 98 Oxygen Delivery Me thod Room Air Course Course ED Course: Reviewed prior urgent care visit from April 24 when patient was seen for enlarged lymph node on the side of the neck. Patient seen examined, presents today with generalized abdominal pain starting overnight. Did vomit, and some nausea. No diarrhea. On exam, vital a stable with diffuse abdominal tenderness. No focal tenderness of the right lower quadrant or right upper quadrant. Labs are ordered along with Toradol, Zofran, and CT scan of the abdomen pelvis. Patient also some dysuria, urinalysis ordered. Reevaluation(s) Time of Reevaluation #1: 05:08 Reevaluation #1: Labs independently interpreted by me with leukocytosis, mild anemia, negative test, urinalysis with ketones, blood, positive nitrite, 25-50 white cells although contaminated with epithelial cells. However, as patient is symptomatic. Rocephin IV will be given, will also test for sexually transmitted infections. Lives independently interpreted by me with normal basic panel other than hypokalemia which will be replaced orally, normal hepatic panel, lipase normal. Time of Reevaluation #2: 05:22 Reevaluation #2: CT abdomen pelvis independently interpreted by me with bladder wall thickening, also some mild with thick walled loops of small bowel in the pelvis. Time of Reevaluation #3: 05:28 Reevaluation #3: IMPRESSION: Circumferential bladder wall thickening, which may be in part related to incomplete distention, but is concerning for cystitis. Correlate with urinalysis. Radiology interpretation of CT agrees my initial interpretation. Patient is stable for discharge. Vital Signs Vital signs: Initial Vital Signs Temperature 98 F 02/05/25 04:32 Temperature Source Temporal Artery Scan 02/05/25 04:32 Pulse Rate 88 02/05/25 04:32 Respiratory Rate 16 02/05/25 04:32 Blood Pressure 109/70 02/05/25 04:32 Blood Pressure Mean 83 02/05/25 04:32 Blood Pressure Position Semi-Fowlers 02/05/25 04:32 Pulse Oximetry 98 02/05/25 04:32 Oxygen Delivery Method Room Air 02/05/25 04:32 Vital Signs Temperature 98 F 02/05/25 04:32 Pulse Rate 88 02/05/25 04:32 Respiratory Rate 16 02/05/25 04:32 Blood Pressure 109/70 02/05/25 04:32 Pulse Oximetry 98 02/05/25 04:32 Oxygen Delivery Method Room Air 02/05/25 04:32 Temperature 98 F 02/05/25 04:32 Pulse Rate 88 02/05/25 04:32 Respiratory Rate 16 02/05/25 04:32 Blood Pressure 109/70 02/05/25 04:32 Pulse Oximetry 98 02/05/25 04:32 Oxygen Delivery Method Room Air 02/05/25 04:32 Medications Administered Medications: Generic Name Dose Route Start Last Admin Trade Name Wendie PRN Reason Stop Dose Admin Sodium Chloride 1,000 mls @ 1,000 mls/hr 02/05/25 05:15 02/05/25 05:27 0.9 % Sodium Chloride 1000 Ml IV 02/05/25 06:14 1,000 mls/hr .Q1H MARCELLE Administration Ceftriaxone Sodium 1 gm/ 100 mls @ 200 mls/hr 02/05/25 05:10 02/05/25 05:27 Sodium Chloride IVPB 02/05/25 05:11 200 mls/hr ONCE ONE Administration Ketorolac Tromethamine 15 mg 02/05/25 04:39 02/05/25 04:49 Ketorolac 15 Mg/Ml Inj IVP 02/05/25 04:40 15 mg ONCE ONE Administration Ondansetron HCl 4 mg 02/05/25 04:39 02/05/25 04:50 Ondansetron 2 Mg/Ml Inj IVP 02/05/25 04:40 4 mg ONCE ONE Administration Potassium Bicarbonate 25 meq 02/05/25 05:11 02/05/25 05:27 Potassium Bicarb 25 Meq Effervescent Tab PO 02/05/25 05:12 25 meq ONCE ONE Administration MDM - Abdominal Pain Lab Data Labs: Lab Results 02/05/25 Range/Units 04:43 WBC 13.29 H (4.50-11.00) K/uL RBC 3.96 L (4.00-5.20) m/uL Hgb 11.9 L (12.0-16.0) gm/dL Hct 35.1 (33.0-51.0) % MCV 89 (80-100) fL MCH 30 (26-34) pg MCHC 34 (32-36) gm/dL RDW Coeff of Unruly 13.0 (11.5-15.5) % Plt Count 219 (140-440) K/uL Neut % (Auto) 82.3 H (42.0-72.0) % Lymph % (Auto) 8.5 L (20-44) % [place] % (Auto) 8.6 (0.0-11.0) % Eos % (Auto) 0.2 (0.0-7.0) % Baso % (Auto) 0.2 (0.0-3.0) % Neut # (Auto) 10.90 H (1.7-7.0) K/uL Lymph # (Auto) 1.10 (0.90-2.90) K/uL [place] # (Auto) 1.10 H (0.00-0.90) K/UL Eos # (Auto) 0.00 (0.00-0.50) K/uL Baso # (Auto) 0.00 (0.00-0.30) K/uL Abs Immat Gran (auto) 0.00 (0.00-0.30) K/uL Imm/Tot Granulo (auto) 0.2 % Sodium 138 (135-149) mmol/L Potassium 3.0 L (3.6-5.1) mmol/L Chloride 98 (96-114) mmol/L Carbon Dioxide 29 (20-32) mmol/L Anion Gap 11 (7-15) mEq/L BUN 10 (5-24) mg/dL Creatinine 0.6 (0.5-1.5) mg/dL Estimated GFR 131 ml/min Glucose 110 (60-115) mg/dL Calcium 8.9 (8.4-10.6) mg/dL Total Bilirubin 0.6 (0.1-1.5) mg/dL Direct Bilirubin 0.2 (0.0-0.5) mg/dL AST 27 (12-35) U/L ALT 14 (4-35) U/L Alkaline Phosphatase 61 (40-150) U/L Total Protein 7.4 (6.0-8.3) g/dL Albumin 4.2 (3.3-5.0) g/dL Lipase 63 (23-300) U/L HCG, Qual Negative (Negative) Urine Color Yellow (Yellow) Urine Appearance Cloudy A (Clear) Urine pH 7.5 (5.0-8.5) Ur Specific [place] 1.020 (1.000-1.030) Urine Protein 3+ A (Negative) Urine Glucose (UA) Negative (Negative) Urine Ketones 4+ A (Negative) Urine Blood 3+ A (Negative) Urine Nitrite Positive A (Negative) Urine Bilirubin Negative (Negative) Urine Urobilinogen 1.0 (0.2-1.0) Ur Leukocyte Esterase 3+ A (Negative) Urine RBC 10-25 A (0-2) Urine WBC 25-50 A (0-5) Ur Squamous Epith Cells Moderate A (None-Few) Amorphous Sediment Moderate A (None) Urine Bacteria Moderate A (None) Discharge Plan Discharge Clinical Impression: Acute UTI, Hypokalemia Patient Disposition: Home, Self-Care Instructions: Urinary Tract Infection in Women (DC), Hypokalemia (ED) Additional Instructions: Take antibiotics as prescribed starting this evening Activity Level: Activity as Tolerated Discharge Diet: Regular Prescriptions: New cefdinir 300 mg capsule 300 mg PO BID 7 Days Qty: 14 0RF Follow Up/Referrals: Provider,Not a Local [Primary Care Provider, Family Practice] Stand Alone Forms: [employer] Info Instructions
[2025-02-05 04:32] VITALS: BP 109/70; PULSE 88; RESP 16; TEMP 36.6; O2SAT 98
--- NOTE | 2025-02-05 04:39 | CRLHL7_ITS ---
For Patients: As a result of the Century Cures Act, medical imaging exams and procedure reports are released immediately into your electronic medical record. You may view this report before your referring provider. If you have questions, please contact your health care provider. INDICATION: Upper abdominal pain, vomiting TECHNIQUE: CT abdomen and pelvis acquired with 53 cc Isovue 370 IV contrast. COMPARISON: None. FINDINGS: Lower chest: Unremarkable. Liver: Unremarkable. Gallbladder and bile ducts: Unremarkable. No stones or inflammation. No biliary dilatation. Pancreas: Unremarkable. Spleen: Unremarkable. Adrenal glands: Unremarkable. No nodules. Kidneys: No hydronephrosis or nephrolithiasis. GI tract: No obstruction. No evidence of significant bowel inflammation. Appendix is not visualized. Vasculature: Abdominal aorta is normal in caliber. Mesenteric arteries are patent. Lymph nodes: No lymphadenopathy. Peritoneum/Abdominal Wall: Small volume fluid in the pelvis, likely physiologic. Pelvis: Incompletely distended bladder with circumferential bladder wall thickening. Bones: Unremarkable for age. IMPRESSION: Circumferential bladder wall thickening, which may be in part related to incomplete distention, but is concerning for cystitis. Correlate with urinalysis. Please note that all CT scans at this facility use dose modulation, iterative reconstruction, and/or weight-based dosing when appropriate to reduce radiation dose to as low as reasonably achievable. Dictated by Joaquina Barrera MD @ 02/05/2025 5:27:24 AM (Electronically Signed)
[2025-02-05 04:50] LABS: Hematocrit* 35.1 % (33.0-51.0); Hemoglobin* 11.9 gm/dL (12.0-16.0); Immature Granulocytes Pct Auto 0.2 %; Mean Corpuscular HGB Conc 34 gm/dL (32-36); Mean Corpuscular Hemoglobin 30 pg (26-34); Mean Corpuscular Volume 89 fL (80-100); RDW Coefficient of Variation % 13.0 % (11.5-15.5); Red Blood Count* 3.96 m/uL (4.00-5.20); White Blood Count* 13.29 K/uL (4.50-11.00)
[2025-02-05] MEDS: ONDANSETRON 2 MG/ML inj 4 MG IVP (04:50)
[2025-02-05 04:53] LABS: Appearance Urine Cloudy (Clear)
[2025-02-05 05:01] LABS: Immature Granulocytes Abs Auto 0.00 K/uL (0.00-0.30); Lymphocytes Absolute Auto 1.10 K/uL (0.90-2.90); Slide Review Reflex No
[2025-02-05 05:04] LABS: Albumin* 4.2 g/dL (3.3-5.0); Chloride* 98 mmol/L (96-114); Sodium* 138 mmol/L (135-149)
[2025-02-05 05:05] LABS: HCG Qualitative Serum* Negative (Negative); Potassium* 3.0 mmol/L (3.6-5.1)
[2025-02-05 05:07] LABS: Alanine Aminotransferase* 14 U/L (4-35); Alkaline Phosphatase* 61 U/L (40-150); Anion Gap 11 mEq/L (7-15); Aspartate Amino Transferase* 27 U/L (12-35); Bilirubin Direct* 0.2 mg/dL (0.0-0.5); Bilirubin Total* 0.6 mg/dL (0.1-1.5); Blood Urea Nitrogen* 10 mg/dL (5-24); Calcium* 8.9 mg/dL (8.4-10.6); Carbon Dioxide* 29 mmol/L (20-32); Creatinine* 0.6 mg/dL (0.5-1.5); Estimated Glomerular Filt Rate 131 ml/min; Glucose* 110 mg/dL (60-115); Total Protein* 7.4 g/dL (6.0-8.3)
[2025-02-05] MEDS: POTASSIUM BICARB 25 MEQ EFFERVESCENT TAB PO (05:27)
[2025-02-05] MEDS: cefTRIAXone 1 GM in 0.9 % SODIUM CHLORIDE Mini-bag 100 ML IVPB (05:27)
[2025-02-05 06:15] VITALS: BP 110/60; PULSE 80; RESP 16; O2SAT 99
[2025-02-05 07:09] LABS: GC DNA Amplified* NOT DETECTED (No Detected)
[2025-02-05 07:30] LABS: Chlamydia DNA Amplified* DETECTED (No Detected)
--- NOTE | 2025-02-05 17:20 | ED_ITS ---
HPI - General Adult General Chief complaint: Abdominal Pain Stated complaint: stomach pain Time Seen by Provider: 02/05/25 04:29 Source: patient Mode of arrival: ambulatory Limitations: no limitations History of Present Illness HPI narrative: Addendum to Dr. Teague is ER note. urine PCR came back positive for chlamydia. I called the patient at about 5:00 p.m. on 02/05/2025. I updated her of the test results by phone. She is agreeable to go to [facility] and package pick up her prescription for doxycycline 100 mg p.o. b.i.d.. gonorrhea negative. Discussed that this is a sexually transmitted infection . I advised the patient to inform her sexual partner or partners to make sure they get tested and treated. patient verbalizes her understanding. Precautions for return to the ER need follow-up reviewed. She will fill the prescription start taking it 2 day. Doxycycline 100mg PO BID x 7 days Related Data Previous Rx's ?Medication ?Instructions ?Recorded cefdinir 300 mg capsule 300 mg PO BID 7 days #14 cap s 02/05/25 doxycycline monohydrate 100 mg 100 mg PO BID #14 caps 02/05/25 capsule ondansetron 4 mg disintegrating 4 mg PO Q6H PRN nausea and 02/05/25 tablet vomiting #20 tabs Allergies Allergy/AdvReac Type Severity Reaction Status Date / Time No Known Drug Allergies Allergy Verified 04/19/23 16:37 PFSH PFSH Social History Non-prescribed substance use: denies use Exam Const: Vital Signs, click to edit/add: Vital Signs - 24 hr 02/05/25 04:32 02/05/25 06:15 Temperature 98 F Pulse Rate [Pulse Oximeter] 88 80 Respiratory Rate 16 16 Blood Pressure [Ri t Upper Arm] 109/70 110/60 Pulse Oximetry 98 99 Oxygen Delivery Me thod Room Air Room Air Course Vital Signs Vital signs: Initial Vital Signs Temperature 98 F 02/05/25 04:32 Temperature Source Temporal Artery Scan 02/05/25 04:32 Pulse Rate 88 02/05/25 04:32 Respiratory Rate 16 02/05/25 04:32 Blood Pressure 109/70 02/05/25 04:32 Blood Pressure Mean 83 02/05/25 04:32 Blood Pressure Position Semi-Fowlers 02/05/25 04:32 Pulse Oximetry 98 02/05/25 04:32 Oxygen Delivery Method Room Air 02/05/25 04:32 Vital Signs Temperature 98 F 02/05/25 04:32 Pulse Rate 88 02/05/25 04:32 Respiratory Rate 16 02/05/25 04:32 Blood Pressure 109/70 02/05/25 04:32 Pulse Oximetry 98 02/05/25 04:32 Oxygen Delivery Method Room Air 02/05/25 04:32 Temperature 98 F 02/05/25 04:32 Pulse Rate 80 02/05/25 06:15 Respiratory Rate 16 02/05/25 06:15 Blood Pressure 110/60 02/05/25 06:15 Pulse Oximetry 99 02/05/25 06:15 Oxygen Delivery Method Room Air 02/05/25 06:15 Medications Administered Medications: Discontinued Medications Generic Name Dose Route Start Last Admin Trade Name Freq PRN Reason Stop Dose Admin Sodium Chloride 1,000 mls @ 1,000 mls/hr 02/05/25 05:15 02/05/25 06:05 0.9 % Sodium Chloride 1000 Ml IV 02/05/25 06:14 Infused .Q1H MARCELLE Infusion Ceftriaxone Sodium 1 gm/ 100 mls @ 200 mls/hr 02/05/25 05:10 02/05/25 06:05 Sodium Chloride IVPB 02/05/25 05:11 Infused ONCE ONE Infusion Ketorolac Tromethamine 15 mg 02/05/25 04:39 02/05/25 04:49 Ketorolac 15 Mg/Ml Inj IVP 02/05/25 04:40 15 mg ONCE ONE Administration Ondansetron HCl 4 mg 02/05/25 04:39 02/05/25 04:50 Ondansetron 2 Mg/Ml Inj IVP 02/05/25 04:40 4 mg ONCE ONE Administration Potassium Bicarbonate 25 meq 02/05/25 05:11 02/05/25 05:27 Potassium Bicarb 25 Meq Effervescent Tab PO 02/05/25 05:12 25 meq ONCE ONE Administration Medical Decision Making Lab Data Labs: Lab Results 02/05/25 Range/Units 04:43 WBC 13.29 H (4.50-11.00) K/uL RBC 3.96 L (4.00-5.20) m/uL Hgb 11.9 L (12.0-16.0) gm/dL Hct 35.1 (33.0-51.0) % MCV 89 (80-100) fL MCH 30 (26-34) pg MCHC 34 (32-36) gm/dL RDW Coeff of Unruly 13.0 (11.5-15.5) % Plt Count 219 (140-440) K/uL Neut % (Auto) 82.3 H (42.0-72.0) % Lymph % (Auto) 8.5 L (20-44) % [place] % (Auto) 8.6 (0.0-11.0) % Eos % (Auto) 0.2 (0.0-7.0) % Baso % (Auto) 0.2 (0.0-3.0) % Neut # (Auto) 10.90 H (1.7-7.0) K/uL Lymph # (Auto) 1.10 (0.90-2.90) K/uL [place] # (Auto) 1.10 H (0.00-0.90) K/UL Eos # (Auto) 0.00 (0.00-0.50) K/uL Baso # (Auto) 0.00 (0.00-0.30) K/uL Abs Immat Gran (auto) 0.00 (0.00-0.30) K/uL Imm/Tot Granulo (auto) 0.2 % Sodium 138 (135-149) mmol/L Potassium 3.0 L (3.6-5.1) mmol/L Chloride 98 (96-114) mmol/L Carbon Dioxide 29 (20-32) mmol/L Anion Gap 11 (7-15) mEq/L BUN 10 (5-24) mg/dL Creatinine 0.6 (0.5-1.5) mg/dL Estimated GFR 131 ml/min Glucose 110 (60-115) mg/dL Calcium 8.9 (8.4-10.6) mg/dL Total Bilirubin 0.6 (0.1-1.5) mg/dL Direct Bilirubin 0.2 (0.0-0.5) mg/dL AST 27 (12-35) U/L ALT 14 (4-35) U/L Alkaline Phosphatase 61 (40-150) U/L Total Protein 7.4 (6.0-8.3) g/dL Albumin 4.2 (3.3-5.0) g/dL Lipase 63 (23-300) U/L HCG, Qual Negative (Negative) Urine Color Yellow (Yellow) Urine Appearance Cloudy A (Clear) Urine pH 7.5 (5.0-8.5) Ur Specific [place] 1.020 (1.000-1.030) Urine Protein 3+ A (Negative) Urine Glucose (UA) Negative (Negative) Urine Ketones 4+ A (Negative) Urine Blood 3+ A (Negative) Urine Nitrite Positive A (Negative) Urine Bilirubin Negative (Negative) Urine Urobilinogen 1.0 (0.2-1.0) Ur Leukocyte Esterase 3+ A (Negative) Urine RBC 10-25 A (0-2) Urine WBC 25-50 A (0-5) Ur Squamous Epith Cells Moderate A (None-Few) Amorphous Sediment Moderate A (None) Urine Bacteria Moderate A (None) C.trachomatis Ampl DNA DETECTED A (No Detected) N.gonorrhoeae Ampl DNA NOT DETECTED (No Detected) Discharge Plan Discharge Clinical Impression: Acute UTI, Hypokalemia, Chlamydia Patient Disposition: Home, Self-Care Instructions: Urinary Tract Infection in Women (DC), Hypokalemia (ED) Additional Instructions: Take antibiotics as prescribed starting this evening Activity Level: Activity as Tolerated Discharge Diet: Regular Prescriptions: New cefdinir 300 mg capsule 300 mg PO BID 7 Days Qty: 14 0RF ondansetron 4 mg tablet,disintegrating 4 mg PO Q6H PRN (Reason: nausea and vomiting) Qty: 20 0RF doxycycline monohydrate 100 mg capsule 100 mg PO BID Qty: 14 0RF Follow Up/Referrals: Provider,Not a Local [Primary Care Provider, Family Practice] Stand Alone Forms: [email or web address] Info Instructions
== END 2025-02-05 06:15 | disposition home or self-care (01) ==
PROVIDERS: Emergency Provider Family Medicine
DX: N39.0 Urinary tract infection, site not specified (principal); E87.6 Hypokalemia; A74.9 Chlamydial infection, unspecified
CPT/HCPCS: 36415; 74177; 80048; 80076; 81001; 83690; 84703; 85025; 87086; 87491; 87591; 96365; 96375; 99281; 99284; 99285; A9270; J0696; J1885; J2405; J7030; Q9967